=== PATIENT | female | born 1990 | race Caucasian/White ===

== ENCOUNTER 2022-06-13 03:23 | Inpatient (IN) ==
[2022-06-13] MEDS: Lactated Ringers 1000 ml BAG 1,000 ML IV ONE ×2 (04:30→06:01)
[2022-06-13 04:54] LABS: ABS Lymphocytes 2.2 10^3/ul (1.0-4.8); ABS Monocytes 0.7 10^3/ul (0-0.8); ABS Neutrophils 8.1 10^3/ul (1.5-7.7); Eosinophil % 0.1 %; Hematocrit 39 % (35-47); Hemoglobin 12.9 g/dL (12.0-16.0); Lymphocyte % 20.1 %; Mean Corpuscular HGB Conc 33 g/dL (31-36); Mean Corpuscular Hemoglobin 30 pg (27-31); Mean Corpuscular Volume 92 fL (80-97); Mean Platelet Volume 9.8 fL (7.4-10.4); Platelet Count 235 10^3/uL (150-450); Red Blood Count 4.26 10^6 /uL (3.70-4.87); Red Cell Distribution Width 13 % (10-15); White Blood Count 11.1 10^3/uL (3.5-10.8)
[2022-06-13] MEDS ORDERED: EPINEPHrine SULFITE FREE 1 MG/ML ONE (05:06)
[2022-06-13] MEDS ORDERED: Lidocaine 1% VIAL 10 MG/ML VIAL 30 ML ONE ×2 (05:06→16:58)
[2022-06-13] MEDS ORDERED: OBEPIDURAL (200 ML) 200 ML EPIDURAL ONE (05:06)
[2022-06-13 05:14] LABS: Urine Benzodiazepine Screen None Detected (None Detect); Urine Cannabinoids Screen None Detected (None Detect); Urine Opiates Screen None Detected (None Detect)
[2022-06-13] MEDS ORDERED: Oxytocin in LR 20,000 MILLI.UNIT/1,000 ML BAG IV SCH ×2 (06:00→16:30)
[2022-06-13] MEDS ORDERED: Sodium Citrate/Citric Acid LIQ 15 ML UDC PO PRN (06:32)
[2022-06-13] MEDS ORDERED: Lactated Ringers 1000 ml BAG 1,000 ML IV ONE (06:32)
[2022-06-13] MEDS ORDERED: Phenylephrine 40 mcg/mL 10mL (400mcg) SYRINGE IV PUSH PRN ×2 (06:32)
[2022-06-13 06:48] LABS: Urine Appearance Cloudy; Urine Bilirubin Negative (Negative); Urine Blood Negative (Negative); Urine Color Yellow; Urine Glucose Negative (Negative); Urine Ketones Negative (Negative); Urine Nitrite Negative (Negative); Urine Protein Negative (Negative); Urine Specific Gravity 1.017 (1.002-1.030); Urine Urobilinogen Negative (Negative)
[2022-06-13] MEDS ORDERED: OBEPIDURAL (200 ML) 200 ML EPIDURAL SCH (07:00)
[2022-06-13] MEDS: Lactated Ringers 1000 ml BAG 1,000 ML IV SCH ×2 (09:23→15:11)
[2022-06-13] MEDS: Ondansetron 4 mg VIAL 2 MG/ML 2 ml VIAL IV PRN ×2 (10:35→14:40)
[2022-06-13] MEDS ORDERED: Glycerin ADULT 2.4 gm SUPP PR PRN (16:27)
[2022-06-13] MEDS: Dibucaine 1% OINT 28.35 GM TUBE PR PRN (18:05)
[2022-06-13] MEDS: Witch Hazel PAD JAR TOPICAL PRN (18:05)
[2022-06-14 07:12] LABS: ABS Lymphocytes 2.4 10^3/ul (1.0-4.8); ABS Neutrophils 10.2 10^3/ul (1.5-7.7); Hematocrit 31 % (35-47); Hemoglobin 10.6 g/dL (12.0-16.0); Lymphocyte % 17.5 %; Mean Corpuscular HGB Conc 34 g/dL (31-36); Mean Corpuscular Hemoglobin 31 pg (27-31); Mean Corpuscular Volume 92 fL (80-97); Mean Platelet Volume 9.6 fL (7.4-10.4); Platelet Count 194 10^3/uL (150-450); Red Blood Count 3.42 10^6 /uL (3.70-4.87); Red Cell Distribution Width 13 % (10-15); White Blood Count 13.5 10^3/uL (3.5-10.8)
[2022-06-14] MEDS: Dibucaine 1% OINT 28.35 GM TUBE PR PRN (22:48)
[2022-06-14] MEDS: Witch Hazel PAD JAR TOPICAL PRN (22:48)
[2022-06-15 07:48] VITALS: BP 103/64
== END 2022-06-15 18:00 | disposition home or self-care (01) | DRG 560 ==
LOC: MCHOBOUT 03:23 → MCHOB 04:16
PROVIDERS: ADMIT Midwife; ATTEND Midwife